=== PATIENT | male | born 1960 | race Caucasian/White ===

== ENCOUNTER 2016-07-19 15:20 | Emergency (ER) | payer OTHER ==
[~2016-07-19] VITALS: Ht 177.8 cm; Wt 103.0 kg
--- NOTE | 2016-07-19 15:30 | PHYS DOC ---
General Chief Complaint: SEIZURE Stated Complaint: seizure Time Seen by MD: 15:23 Source: patient, EMS, old records, other ([facility]) Problems: History of Present Illness Initial Comments Pt is 56/M diverted to ED from OR after breakthru seizure. Pt has h/o seizure disorder takes keppra (missed keppra this am) follows with neurology. Pt was picked up by EMS after seizing in local liquor store. Tonic clonic activity reported by witnesses to EMS, they report pt post-ictal initially and with the confusion pt became afraid and was combative. Confusion/ agitation resolved quickly, pt has been cooperative. He denies BILLY or focal weakness, denies any new pain complaints which couldve resulted from potential fall. No oral lesions, pt states he feels back to normal. Timing/Duration: momentarily Severity: severe Modifying Factors: improves with other Associated Symptoms: seizure Allergies: Coded Allergies: No Known Drug Allergies (Unverified , 07/19/16) Past Medical History Medical History: other (essential tremor, HLP, obesity, chronic back pain, depression, HTN, thrombocytopenia, elevated LFTs, anemia, B-12 defic, subdural hematoma/TBI, insomnia, subdural abscess, ) Surgical History: noncontributory Social History Smoker: non-smoker Alcohol: other (h/o abuse, denies heavy drinking currently) Drugs: none Review of Systems Constitutional: denies chills, denies fever, malaise Respiratory: denies cough, denies shortness of breath Cardiovascular: denies chest pain, denies palpitations, syncope Gastrointestinal: denies abdominal pain, denies diarrhea, denies nausea, denies vomiting Genitourinary: denies dysuria, denies frequency, denies hematuria Musculoskeletal: see HPIdenies joint pain, denies neck pain Psychiatric/Neurological: see HPIdenies headache Hematologic/Lymphatic: see HPIdenies blood clots, denies easy bleeding Physical Exam General Appearance: no apparent distress (disheveled) Eyes: bilateral eye EOMI, bilateral eye PERRL, bilateral eye normal inspection Ear, Nose, Throat: hearing grossly normal, normal ENT inspection, normal pharynx Neck: non-tender, supple Respiratory: normal breath sounds, no respiratory distress Cardiovascular: normal peripheral pulses, regular rate, rhythm Gastrointestinal: non tender, soft Back: no CVA tenderness, no vertebral tenderness Extremities: non-tender, normal inspection Neurologic/Psychiatric: school program director II-XII nml as tested, no motor/sensory deficits, alert, normal mood/affect, oriented x 3 Skin: normal color, warm/dry Orders, Labs, Meds EKG: NSR 92 bpm, no STEMI PATIENT: AYALA ESPINOSA ACCOUNT: [id number] : 1960 LOCATION: ER AGE: 56 SEX: M EXAM STATUS: PRE ER ORD. PHYSICIAN: GUERRERO SAWANT DO REASON: breakthru seizure PROCEDURE: PORTABLE CHEST 1V EXAM: Chest, single view. HISTORY: Seizure. COMPARISON: None. FINDINGS: A frontal view of the chest is obtained. There is bilateral lower lobe atelectasis. There is no infiltrate, effusion or pneumothorax. The heart is normal in size for portable technique. IMPRESSION: No acute pulmonary finding. DICTATED AND SIGNED BY: RICHARD JIMENEZ MD DATE: 07/19/16 1603 CC: GUERRERO SAWANT DO ~ Labs: Hb 12.8, MCV 106, plt 113, lactic acid 5.8, magnesium 1.3, t.bili 1.1, AST 39 Pt received keppra/slomag home dose in ED I discussed disposition with pt. Pt does not want inpatient treatment, I feel pt stable for home with close follow up. Pt expressed agreement/understanding with treatment plan. Departure Time of Disposition: 16:44 Disposition: 01 HOME, SELF-CARE Diagnosis: breakthru seizure Condition: IMPROVED Patient Instructions: Seizure, Adult Additional Instructions: Take meds as prescribed, no missed doses. Rest, no strenuous activity. No driving or operating machinery until cleared by your doctor. Follow up with your doctor Saturday. Call to schedule next available appointment with your neurologist. Return to ED with new or changing symptoms. GUERRERO SAWANT DO Jul 19, 2016 15:30
[2016-07-19 15:32] VITALS: BP 168/91
[2016-07-19 15:56] LABS: BASO # 0.1 x10^3/uL (0.0-0.2); BASO % 1 % (0-3); EOS % 0 % (0-3); HEMATOCRIT 37.9 % (39.0-53.0); HEMOGLOBIN 12.8 g/dL (13.0-17.5); LYMPH # 0.8 x10^3/uL (1.0-4.8); LYMPH % 19 % (24-48); MEAN CORPUSCULAR HEMOGLOBIN 36 pg (25-35); MEAN CORPUSCULAR HGB CONC 34 g/dL (31-37); MEAN CORPUSCULAR VOLUME 106 fL (79-100); MONO # 0.7 x10^3/uL (0.0-1.1); MONO % 16 % (0-9); NEUT # 2.8 x10^3uL (1.8-7.7); NEUT % 63 % (31-73); PLATELET COUNT 113 x10^3/uL (140-400); RED BLOOD COUNT 3.59 x10^6/uL (4.30-5.70); RED CELL DISTRIBUTION WIDTH 12.5 % (11.5-14.5); WHITE BLOOD COUNT 4.3 x10^3/uL (4.0-11.0)
[2016-07-19 16:06] LABS: ALBUMIN 3.8 g/dL (3.4-5.0); CALCIUM 8.9 mg/dL (8.5-10.1); CREATININE 0.9 mg/dL (0.7-1.3); DIRECT BILIRUBIN 0.4 mg/dL (0.0-0.2); GFR 86.7; MAGNESIUM 1.3 mg/dL (1.8-2.4); POTASSIUM 3.5 mmol/L (3.5-5.1); TOTAL BILIRUBIN 1.1 mg/dL (0.2-1.0)
--- NOTE | 2016-07-19 16:06 | RAD ---
EXAM: Chest, single view. HISTORY: Seizure. COMPARISON: None. FINDINGS: A frontal view of the chest is obtained. There is bilateral lower lobe atelectasis. There is no infiltrate, effusion or pneumothorax. The heart is normal in size for portable technique. IMPRESSION: No acute pulmonary finding.
[2016-07-19 16:26] LABS: BILIRUBIN,URINE NEG (NEG); CLARITY,URINE CLEAR; COLOR,URINE YELLOW; GLUCOSE,URINE NEG (NEG)
[2016-07-19 16:27] LABS: BACTERIA,URINE 0 /HPF (0-FEW); NITRITE,URINE NEG (NEG); RBC,URINE OCC /HPF (0-2); SQUAMOUS EPITHELIAL CELL,UR OCC /LPF; UROBILINOGEN,URINE 0.2 mg/dL (0.2 mg/dL); WBC,URINE OCC /HPF (0-4)
[2016-07-19 16:29] LABS: AMPHETAMINE/METHAMPHETAMINE NEG (NEG); BARBITURATES NEG (NEG); BENZODIAZEPINES NEG (NEG); CANNABINOIDS NEG (NEG); COCAINE NEG (NEG); METHADONE NEG (NEG); OPIATES NEG (NEG); PHENCYCLIDINE NEG (NEG)
[2016-07-19] MEDS ORDERED: MVI, ADULT NO.4 WITH VIT K 10 ML, FOLIC ACID SYRINGE for ER 1 MG, THIAMINE 100 MG in IV... IV SCH ×4 (16:30)
[2016-07-19] MEDS ORDERED: MAGNESIUM CHLORIDE ER 64 MG TABLET.ER PO ONE (17:00)
--- NOTE | 2016-07-19 18:20 | EKG ---
[address] [address] Test Date: 2016-07-19 Test Time: 15:27:21 Pat Name: AYALA ESPINOSA Department: Room: Gender: M Veterinary Assistant: NICOL : 1960 Requested By: GUERRERO SAWANT Order Number: [id number] Reading MD: Rayshawn Rebolledo Measurements Intervals [place] Rate: 92 P: -56 AK: 140 QRS: 0 QRSD: 96 T: 19 QT: 380 QTc: 475 Interpretive Statements SINUS RHYTHM Electronically Signed On 08-07-2016 9:33:52 CDT by Rayshawn Rebolledo
== END 2016-07-19 17:28 | disposition home or self-care (01) ==
LOC: ER 15:20
DX: G40.909 Epilepsy, unspecified, not intractable, without status epilepticus (principal); E78.5 Hyperlipidemia, unspecified; G89.29 Other chronic pain; F32.9 Major depressive disorder, single episode, unspecified; I10 Essential (primary) hypertension; E66.9 Obesity, unspecified; G25.0 Essential tremor; G47.00 Insomnia, unspecified; F10.10 Alcohol abuse, uncomplicated; Z87.820 Personal history of traumatic brain injury; Z86.2 Personal history of diseases of the blood and blood-forming organs and certain disorders involving the immune mechanism
CPT/HCPCS: 36415; 71010; 80048; 80076; 80305; 80320; 81001; 82550; 83605; 83735; 84484; 85027; 93005; 96365; G0480; G0481; 99285-25; J7030